=== PATIENT | female | born 2000 | race Two or more races ===

== ENCOUNTER → 2019-05-14 | Outpatient (CLI) | payer OTHER | END | disposition home or self-care (01) | LOC: PRENATAL 11:00 | DX: O35.3XX1 Maternal care for (suspected) damage to fetus from viral disease in mother, fetus 1 (principal); Z36.89 Encounter for other specified antenatal screening; Z3A.21 21 weeks gestation of pregnancy ==

== ENCOUNTER 2019-06-17 19:16 | Inpatient (IN) | payer OTHER ==
[~2019-06-17] VITALS: Ht 157.5 cm; Wt 62.6 kg
[2019-06-17] MEDS ORDERED: PRENATAL TABLE1 EAC1 PO (20:16)
[2019-06-17] MEDS ORDERED: IRON325 MG PO (20:17)
[2019-06-24] MEDS ORDERED: IRON1TAB4 PO (08:04)
== END 2019-06-24 10:13 | disposition home or self-care (01) | DRG 833 ==
LOC: LDR 19:16
PROVIDERS: ADMIT Obstetrics & Gynecology
PROC: BY4CZZZ Ultrasonography of Second Trimester, Single Fetus (ICD-10-PCS; principal; 2019-06-17)
PROC: 4A033R1 Measurement of Arterial Saturation, Peripheral, Percutaneous Approach (ICD-10-PCS; 2019-06-17)
PROC: 8E0ZXY6 Isolation (ICD-10-PCS; 2019-06-17)
PROC: 4A1HXCZ Monitoring of Products of Conception, Cardiac Rate, External Approach (ICD-10-PCS; 2019-06-17)
PROC: 3E0F7GC Introduction of Other Therapeutic Substance into Respiratory Tract, Via Natural or Artificial Opening (ICD-10-PCS; 2019-06-19)
PROC: B246ZZZ Ultrasonography of Right and Left Heart (ICD-10-PCS; 2019-06-19)
DX: O26.892 Other specified pregnancy related conditions, second trimester (principal); J10.1 Influenza due to other identified influenza virus with other respiratory manifestations; J20.0 Acute bronchitis due to Mycoplasma pneumoniae; O99.012 Anemia complicating pregnancy, second trimester; I08.1 Rheumatic disorders of both mitral and tricuspid valves; D63.8 Anemia in other chronic diseases classified elsewhere

== ENCOUNTER 2019-09-18 16:18 | Inpatient (IN) | payer OTHER ==
[~2019-09-18] VITALS: Ht 157.5 cm; Wt 70.3 kg
[~2019-09-18 16:18] MED LIST: IRON1TAB4 PO; IRON325 MG PO; PRENATAL TABLE1 EAC1 PO
[2019-09-18] MEDS ORDERED: LEVOTHYROXINE25 MCG PO (23:15)
== END 2019-09-21 14:06 | disposition home or self-care (01) | DRG 807 ==
LOC: LDR 16:18 → OB/GYN 09-19 16:22
PROVIDERS: ADMIT Obstetrics & Gynecology; ATTEND Obstetrics & Gynecology
PROC: 10E0XZZ Delivery of Products of Conception, External Approach (ICD-10-PCS; principal; 2019-09-19)
PROC: 4A1HXFZ Monitoring of Products of Conception, Cardiac Rhythm, External Approach (ICD-10-PCS; 2019-09-19)
PROC: 3E033VJ Introduction of Other Hormone into Peripheral Vein, Percutaneous Approach (ICD-10-PCS; 2019-09-19)
PROC: 0W8NXZZ Division of Female Perineum, External Approach (ICD-10-PCS; 2019-09-19)
DX: O36.5930 Maternal care for other known or suspected poor fetal growth, third trimester, not applicable or unspecified (principal); Z37.0 Single live birth; O99.284 Endocrine, nutritional and metabolic diseases complicating childbirth; Z3A.39 39 weeks gestation of pregnancy